=== PATIENT | female | born 1965 | race Caucasian/White ===

== ENCOUNTER 2022-12-25 10:34 | Emergency (ER) | payer MEDICAID ==
[~2022-12-25] VITALS: Ht 165.1 cm; Wt 92.6 kg
[2022-12-25 10:53] VITALS: BP 128/41; PULSE 85; RESP 20; TEMP 99; O2SAT 100
[2022-12-25 12:04] LABS: FLU B ANTIGEN negative (NEGATIVE)
[2022-12-25 12:07] LABS: FLU A ANTIGEN POSITIVE (NEGATIVE)
[2022-12-25] MEDS ORDERED: TAM75 PO (12:13)
[2022-12-25] MEDS ORDERED: CETI10TA81 PO (12:13)
[2022-12-25] MEDS ORDERED: FLUT0.0571 NS (12:13)
[2022-12-25] MEDS ORDERED: SUD30 PO (12:13)
[2022-12-25 12:15] LABS: APPEARANCE,URINE SL CLOUDY (CLEAR); BILIRUBIN,URINE NEGATIVE (NEGATIVE); BLOOD, URINE NEGATIVE (NEGATIVE); COLOR,URINE YELLOW (YELLOW); LEUKOCYTE ESTERASE ,URINE 1+ (NEGATIVE); NITRITE, URINE POSITIVE (NEGATIVE); PROTEIN,URINE NEGATIVE (NEGATIVE); UGLUCOSE NEGATIVE (NEGATIVE); UROBILINOGEN,URINE 0.2 EU/dL (0.2 - 1)
[2022-12-25 12:20] LABS: RBC,URINE 0 /HPF (0-5)
[2022-12-25 12:21] LABS: BACTERIA,URINE 3+ /HPF (None Seen); MUCUS,URINE None Seen /LPF (None Seen); SQUAMOUS EPITHELIAL CELL,UR 0-3 (FEW) /LPF (0-3 (FEW))
[2022-12-25] MEDS ORDERED: NITR100C7 PO (12:26)
[2022-12-25 12:43] VITALS: BP 122/72; PULSE 75; RESP 16; TEMP 98; O2SAT 98
== END 2022-12-25 12:44 | disposition home or self-care (01) ==
LOC: MED 10:34
DX: J10.1 Influenza due to other identified influenza virus with other respiratory manifestations (principal); Z20.822 Contact with and (suspected) exposure to COVID-19; J32.9 Chronic sinusitis, unspecified; J30.9 Allergic rhinitis, unspecified; N39.0 Urinary tract infection, site not specified; Z79.899 Other long term (current) drug therapy
CPT/HCPCS: 81001; 82948; 87086; 99283

== ENCOUNTER 2023-03-22 17:32 | Emergency (ER) | payer MEDICAID ==
[~2023-03-22] VITALS: Ht 154.9 cm; Wt 90.7 kg
[~2023-03-22 17:32] MED LIST: CETI10TA81 PO; FLUT0.0571 NS; NITR100C7 PO; SUD30 PO; TAM75 PO
[2023-03-22 17:42] VITALS: BP 139/69; PULSE 68; RESP 18; TEMP 96.2; O2SAT 100
[2023-03-22] MEDS: ACETAMINOPHEN EXTRA STRENGTH 500 MG TAB PO ONE (20:32)
[2023-03-22] MEDS: KETOROLAC 30 MG/ML VIAL IM ONE (20:32)
[2023-03-22] MEDS ORDERED: DICL20GE TP (21:39)
[2023-03-22] MEDS ORDERED: ACET-10509 PO (21:39)
== END 2023-03-22 21:49 | disposition home or self-care (01) ==
LOC: MED 17:32
DX: M79.661 Pain in right lower leg (principal); M25.561 Pain in right knee; E11.9 Type 2 diabetes mellitus without complications; Z79.4 Long term (current) use of insulin; Z79.899 Other long term (current) drug therapy
CPT/HCPCS: 73562; 93971; 96372; 99285; J1885